=== PATIENT | female | born 1950 | race Caucasian/White ===

== ENCOUNTER 2016-09-02 05:40 | Outpatient (CLI) | payer BC ==
[~2016-09-02] VITALS: Ht 171.4 cm; Wt 77.1 kg
[2016-09-02] MEDS ORDERED: UBID60CA6 PO (11:42)
[2016-09-02] MEDS ORDERED: MULT-35 PO (11:42)
[2016-09-02] MEDS ORDERED: HYDR25TA4 PO (11:42)
[2016-09-02] MEDS ORDERED: ATOR20TA66 PO (11:42)
[2016-09-02] MEDS ORDERED: METO-272 PO (11:42)
== END 2016-09-02 11:47 ==
LOC: PREOP 05:40
PROVIDERS: ATTEND Surgery Pediatric Surgery
DX: Z01.818 Encounter for other preprocedural examination (principal); Z12.11 Encounter for screening for malignant neoplasm of colon; Z86.010 Personal history of colon polyps

== ENCOUNTER 2016-09-04 09:36 | Day surgery (SDC) | payer BC ==
[~2016-09-04] VITALS: Ht 171.4 cm; Wt 77.1 kg
[~2016-09-04 09:36] MED LIST: ATOR20TA66 PO; HYDR25TA4 PO; METO-272 PO; MULT-35 PO; UBID60CA6 PO
[2016-09-04] MEDS ORDERED: NS IV 500 ML 500 ML IV PRN (09:39)
--- OUTSIDE RECORDS SUMMARY | 2016-09-04 09:41 | XMS REPORT | Continuity of Care Document ---
Author Author [facility] Address Unknown Phone Unavailable Allergies Medications Problems Procedures Results Encounters ACCT No. Visit Date/Time Discharge Status Pt. Type Provider Facility Loc./Unit Complaint [id number] 08/08/2014 10:00:46 08/08/2014 23: 59:59 CLS Outpatient Blas Thakkar
[2016-09-04] MEDS ORDERED: NS IV 500 ML 500 ML ONE (09:42)
[2016-09-04] MEDS ORDERED: LIDOCAINE JELLY 2% (XYLOCAINE) 5 ML TUBE MM PRN (09:45)
[2016-09-04] MEDS ORDERED: FLUMAZENIL (ROMAZICON) 0.1 MG/ML 5 ML VIAL INJ PRN (09:45)
[2016-09-04] MEDS ORDERED: NALOXONE 0.4 MG/ML 1 ML (NARCAN) VIAL IVP PRN (09:45)
[2016-09-04 10:05] VITALS: BP 135/76
[2016-09-04] MEDS ORDERED: fentaNYL INJECTION 100 MCG/2 ML AMP ONE ×2 (10:19)
[2016-09-04] MEDS ORDERED: LIDOCAINE JELLY 2% (XYLOCAINE) 5 ML TUBE ONE (10:19)
[2016-09-04] MEDS ORDERED: MIDAZOLAM 2 MG/2 ML (VERSED) VIAL ONE ×4 (10:19→10:20)
--- NOTE | 2016-09-04 10:25 | Progress Note-Pre Operative ---
Pre-Operative Progress Note H&P Reviewed The H&P was reviewed, patient examined and no changes noted. Date H&P Reviewed: Sep 04, 2016 Time H&P Reviewed: 10:00 Pre-Operative Diagnosis: hx colon polyp EVETTE BARILLAS MD Sep 04, 2016 10:25 am
--- NOTE | 2016-09-04 10:25 | Conscious Sedation/ASA ---
Conscious Sedation Pre-Proced Time Reviewed: 10:00 ASA Class: 2 Airway Mallampati Classification: ([place] appropriate class) I. II. III, IV Lungs Heart ASA score ASA 1: a normal healthy patient ASA 2: a patient with a mild systemic disease (mid diabetes, controlled hypertension, obesity ASA 3: a patient with a severe systemic disease that limits activity (angina , COPD, prior Myocardial infarction) ASA 4: a patient with an incapacitating disease that is a constant threat to life (CHF, renal failure) ASA 5: a moribund patient not expected to survive 24 hrs. (ruptured aneurysm) ASA 6: a declared brain patient whose organs are being harvested. For emergent operations, add the letter E after the classification Grade 2 Sedation Plan: Analgesia, Amnesia, Plan communicated to team members, Discussed options with patient/fam, Discussed risks with patient/fam Note The patient is an appropriate candidate to undergo the planned procedure, sedation, and anesthesia. The patient immediately re-assessed prior to indication. EVETTE BARILLAS MD Sep 04, 2016 10:25 am
[2016-09-04] MEDS ORDERED: morphine INJ 10 MG/ML 1ML (SYR OR VIAL) IV PRN (10:30)
[2016-09-04] MEDS ORDERED: HYDROcodone/APAP 5 MG/325 MG (LORTAB) TAB PO PRN (10:30)
[2016-09-04] MEDS ORDERED: ONDANSETRON 4 MG/2 ML (SDV) Z0FRAN IV PRN (10:30)
[2016-09-04] MEDS ORDERED: ACETAMINOPHEN 325 MG TABLET/CAPLET (TYLENOL) PO PRN (10:30)
[2016-09-04] MEDS: fentaNYL INJECTION 100 MCG/2 ML AMP IVP PRN ×4 (10:34→10:47)
[2016-09-04] MEDS: MIDAZOLAM 2 MG/2 ML (VERSED) VIAL IVP PRN ×3 (10:38→10:45)
--- NOTE | 2016-09-04 11:09 | Progress Note-Post Operative ---
Post-Operative Progess Note Pre-Operative Diagnosis hx colon polyp Post-Operative Diagnosis chronic stage 1 ext and int hemorrhoids, proximal rectal HP(2mm), mild-moderate sigmoid diverticulosis. Post-Op Procedure Note Date of Procedure: Sep 04, 2016 Name of Procedure: Colonoscopy with bx Anesthesia Type CS Estimated blood loss (mL): minimal Specimen(s) collected rectal polyp EVETTE BARILLAS MD Sep 04, 2016 11:09 am
--- NOTE | 2016-09-04 11:10 | Discharge Inst-Surgical ---
D/C Lap Instructions-ERAN Follow Up 5 years Activity as tolerated High Fiber Diet 25g or more per day Avoid Alcohol, Caffeine, Spicy [place] and Acid foods. Drink 64 fluid oz or more of fluids per day. Symptoms to Report: Fever over 101 degree F, Nausea/Vomiting If any problems/questions: Contact your physician or go to Emergency Room EVETTE BARILLAS MD Sep 04, 2016 11:10 am
[2016-09-04 11:30] VITALS: BP 101/65
[2016-09-04 12:00] VITALS: BP 100/67
[2016-09-04 12:15] VITALS: BP 100/67
--- NOTE | 2016-09-05 12:07 | PROCEDURE REPORT ---
PROCEDURE PHYSICIAN: EVETTE DENNISON DATE OF PROCEDURE: 09/04/2016 ATTENDING PRIMARY CARE PHYSICIAN: Dr. Garza. PREOPERATIVE DIAGNOSIS: History of colon polyp. POSTOPERATIVE DIAGNOSES: 1. Mild chronic stage I external and internal hemorrhoids. 2. Small proximal rectal hyperplastic polyp, 2 mm in size. 3. Mild to moderate sigmoid diverticulosis. PROCEDURE: Colonoscopy with biopsy. SURGEON: Dr. Dennison. ANESTHESIA: Conscious sedation. ESTIMATED BLOOD LOSS: Minimal. FINDINGS: 1. Chronic stage I external and internal hemorrhoids, not actively edematous or inflamed and no bleeding. There is a small hyperplastic polyp of the proximal rectum, approximately 2 mm in size. 2. There was a mild to moderate sigmoid diverticulosis with no mucosal inflammatory changes. 3. The remainder of the colon was normal. DISPOSITION: The patient tolerated the procedure well. Ms. Sydni Schultz is a 65-year-old female in need of a follow-up screening colonoscopy. She reports that she had one done in 2008 and reports at this time she did have a polyp identified and removed at the transverse colon, which was a tubulovillous adenoma. She reports no symptoms at this time. She does not report any issues with constipation or diarrhea as well as no red blood per rectum nor any dark tarry stools. She also does not report any family history of colon cancer. PROCEDURE: The patient was brought to the endoscopy suite, laid in the left lateral decubitus position. After adequate IV pain and sedative medications and conscious sedation anesthesia, a digital rectal examination was performed. Mild stage I chronic external and internal hemorrhoids were identified, which were not actively edematous or inflamed and no bleeding. Normal sphincter tone was felt and there were no palpable masses. The endoscope was then intubated into the anus and the rectum gently insufflated. The endoscope was then advanced through the valves of Patel of the rectum. At the level of the proximal rectum, a small hyperplastic polyp approximately 2 mm in size was identified. This was biopsied and destroyed using forceps and electrocautery with visualization of good hemostasis. The endoscope was then advanced through the sigmoid colon where a mild to moderate sigmoid diverticulosis was identified. There were no mucosal inflammatory changes to indicate any active diverticulitis. The endoscope was then advanced through the remainder of the descending, transverse, and ascending colon to the cecum. These segments were normal. There were no other lesions identified. The endoscope was then slowly withdrawn while taking a second look and suctioning of residual air with no additional findings. The patient tolerated the procedure well. We will have her continue with medical management with a high fiber diet with at least 25 to 30 grams of fiber per day, as well as at least 64 fluid ounces of water daily to promote soft stools on a daily basis. Because of her history of polyps identified 2008 as well as on this colonoscopy we will recommend a follow-up colonoscopy in 5 years. Job ID: [id number] Dictated Date: 09/04/2016 11:09:42 Shredding Machine Operator Date: 09/05/2016 11:58:16 / kate
== END 2016-09-04 12:15 | disposition home or self-care (01) ==
LOC: ENDO 09:36
PROVIDERS: ATTEND Surgery Pediatric Surgery
DX: Z09 Encounter for follow-up examination after completed treatment for conditions other than malignant neoplasm (principal); K62.1 Rectal polyp; Z86.010 Personal history of colon polyps; K57.90 Diverticulosis of intestine, part unspecified, without perforation or abscess without bleeding; K64.0 First degree hemorrhoids
CPT/HCPCS: 88305

== ENCOUNTER → 2022-06-10 | Outpatient (CLI) | payer MEDICARE, OTHER ==
[~2022-06-10] MED LIST changes: -METO-272 PO; +METO50TA7 PO; -UBID60CA6 PO; +UBID60CA8 PO
[2022-06-10 09:31] LABS: BASOPHILS % (AUTO) 0 % (0-10); EOSINOPHILS # (AUTO) 0.2 10^3/uL (0.0-0.3); EOSINOPHILS % (AUTO) 2 % (0-10); HEMATOCRIT 47 % (35-52); HEMOGLOBIN 15.3 g/dL (11.5-16.0); LYMPHOCYTES # (AUTO) 2.3 10^3/uL (1.0-4.0); LYMPHOCYTES % (AUTO) 20 % (12-44); MEAN CORPUSCULAR HEMOGLOBIN 29 pg (25-34); MEAN CORPUSCULAR HGB CONC 33 g/dL (32-36); MEAN CORPUSCULAR VOLUME 88 fL (80-99); MEAN PLATELET VOLUME 8.8 fL (9.0-12.2); MONOCYTES # (AUTO) 1.1 10^3/uL (0.0-1.0); MONOCYTES % (AUTO) 9 % (0-12); NEUTROPHILS # (AUTO) 7.7 10^3/uL (1.8-7.8); NEUTROPHILS % (AUTO) 68 % (42-75); PLATELET COUNT 209 10^3/uL (130-400); WHITE BLOOD COUNT 11.4 10^3/uL (4.3-11.0)
[2022-06-10 09:54] LABS: ALANINE AMINOTRANSFERASE 36 U/L (0-55); ALBUMIN 4.1 GM/DL (3.2-4.5); ALKALINE PHOSPHATASE 71 U/L (40-136); BILIRUBIN,TOTAL 1.1 MG/DL (0.1-1.0); BUN/CREATININE RATIO 20; CALCIUM 9.8 MG/DL (8.5-10.1); CARBON DIOXIDE 30 MMOL/L (21-32); CHLORIDE 99 MMOL/L (98-107); CREATININE SERUM 0.81 MG/DL (0.60-1.30); GFR ESTIMATED 79; GLUCOSE 85 MG/DL (70-105); POTASSIUM 3.2 MMOL/L (3.6-5.0); SODIUM 140 MMOL/L (135-145); TOTAL PROTEIN 7.3 GM/DL (6.4-8.2)
== END ==
LOC: CARD 09:30
PROVIDERS: ATTEND Nurse Practitioner Family
DX: I21.9 Acute myocardial infarction, unspecified (principal)
CPT/HCPCS: 36415; 80053; 84484; 85025; 85379; 93005

== ENCOUNTER 2022-06-11 16:52 | Emergency (ER) | payer MEDICARE, OTHER ==
[~2022-06-11] VITALS: Ht 172 cm; Wt 79.0 kg
--- NOTE | 2022-06-11 17:15 | ED Chest Pain ---
General Chief Complaint: Chest Pain Stated Complaint: CHEST PAIN Nursing Triage Note: PT AMB TO RM3 PT CO OF CHEST PAIN APPROX 30 MIN. WHILE LYING IN BED PT CO OF ANXIETY. PT DENIES SOA, PT HAS CURRENTLY BEEN TAKING PREDNISONE AND AUGMENTIN AFTER BEING SICK FOR A WEEK, PT TESTED NEG FOR COVID. PT STATES HAS ANXIETY FROM TAKING PREDNISONE. PT DENIES C\\P AT THIS X. History of Present Illness Date Seen by Provider: Jun 11, 2022 Time Seen by Provider: 16:50 Initial Comments Patient is a 71-year-old female who presents to the emergency department for evaluation after having an episode of chest pain overnight that lasted approximately 30 minutes. She states that the pain was located in her left chest. She denies any alleviating or aggravating factors. She states it was self-limiting and resolved without intervention. She states she has had URI symptoms for approximately 1 to 2 weeks. She recently finished Augmentin and prednisone as prescribed by her PCP. She states that she feels like she has had persistent anxiety since taking the prednisone. She was seen at PCP yesterday where lab work and an EKG were obtained. She states that they found something on the EKG that prompted them to tell her to follow-up with a infection control manager. She states that she was also told that her potassium was low and her bilirubin was elevated. She states she usually takes potassium supplement daily but has not taken it for the last several days. She denies any fever, shortness of air, dependent edema. No history of smoking. She denies any history of cardiopulmonary disease. Allergies and Home Medications Allergies Coded Allergies: nitrofurantoin (Verified Allergy, Intermediate, RASH, 09/02/16) Patient Home Medication List Home Medication List Reviewed: Yes Atorvastatin Calcium (Atorvastatin Calcium) 20 Mg Tablet, 20 MG PO HS, (Reported) Entered as Reported by: DIAZ JACKSON on 09/02/16 1142 Hydrochlorothiazide (Hydrochlorothiazide) 25 Mg Tablet, 25 MG PO DAILY, (Reported) Entered as Reported by: DIAZ JACKSON on 09/02/16 1142 Metoprolol Succinate (Metoprolol Succinate) 50 Mg Tab.er.24h, 50 MG PO DAILY, (Reported) Entered as Reported by: DIAZ JACKSON on 09/02/16 1142 Multivitamin (Daily Multiple Vitamin) 1 Each Tablet, 1 EACH PO DAILY, (Reported) Entered as Reported by: DIAZ JACKSON on 09/02/16 1142 Ubidecarenone (Co Q10) Unknown Strength Capsule, 60 MG PO DAILY, (Reported) Entered as Reported by: DIAZ JACKSON on 09/02/16 1142 Review of Systems Review of Systems Constitutional: no symptoms reported EENTM: See HPI Respiratory: See HPI Cardiovascular: See HPI Gastrointestinal: No Symptoms Reported Genitourinary: No Symptoms Reported Musculoskeletal: no symptoms reported Skin: no symptoms reported Psychiatric/Neurological: No Symptoms Reported Endocrine: No Symptoms Reported Hematologic/Lymphatic: No Symptoms Reported Past Kpffiek-Ewvzcy-Fsbfnd Hx Patient Social History Tobacco Use?: No Substance use?: No Alcohol Use?: No Immunizations Up To Date Tetanus Booster (TDap): Unknown Influenza Vaccine Up-to-Date: Yes; Up-to-Date First/Initial COVID19 Vaccinat: 2020 Second COVID19 Vaccination [place]: 2020 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: [employer] Seasonal Allergies Seasonal Allergies: No Past Medical History Surgery/Hospitalization HX: R KNEE SCOPE, HTN, ELEVATED CHOLESTEROL, ARTHRITIS Currently Using CPAP: No Currently Using BIPAP: No High Cholesterol, Hypertension Reproductive Disorders: No Female Reproductive Disorders: Denies Sexually Transmitted Disease: No HIV/AIDS: No UTI-Chronic Loss of Vision: Bilateral Hearing Impairment: Denies Adverse Reaction/Blood Tranf: No (N/A) Physical Exam Vital Signs Vital Signs - First Documented 06/11/22 16:55 Temp 36.9 Pulse 82 Resp 16 B/P (MAP) 151/88 (109) Pulse Ox 97 Capillary Refill : Less Than 3 Seconds Height, Weight, BMI Height: 5'7.50" Weight: 170lbs. 0.0oz. 77.514412ri; 26.00 BMI Method: General Appearance: No Apparent Distress, WD/WN HEENT: PERRL/EOMI, TMs Normal, Normal ENT Inspection, Pharynx Normal Neck: Full Range of Motion, Normal Inspection, Non Tender, Supple Respiratory: Chest Non Tender, Lungs Clear, Normal Breath Sounds, No Accessory Muscle Use Cardiovascular: Regular Rate, Rhythm Gastrointestinal: Non Tender, Soft Extremity: Normal Capillary Refill, Normal Inspection, Normal Range of Motion, Non Tender, No Calf Tenderness Neurologic/Psychiatric: Alert, Oriented x3, No Motor/Sensory Deficits, Normal Mood/Affect Skin: Normal Color, Warm/Dry Progress/Results/Core Measures Results/Orders Lab Results Laboratory Tests Test 06/11/22 17:05 Range/Units White Blood Count 9.4 4.3-11.0 10^3/uL Red Blood Count 5.15 H 3.80-5.11 10^6/uL Hemoglobin 14.9 11.5-16.0 g/dL Hematocrit 45 35-52 % Mean Corpuscular Volume 87 80-99 fL Mean Corpuscular Hemoglobin 29 25-34 pg Mean Corpuscular Hemoglobin Concent 33 32-36 g/dL Red Cell Distribution Width 13.5 10.0-14.5 % Platelet Count 197 130-400 10^3/uL Mean Platelet Volume 9.4 9.0-12.2 fL Immature Granulocyte % (Auto) 0 % Neutrophils (%) (Auto) 66 42-75 % Lymphocytes (%) (Auto) 25 12-44 % Monocytes (%) (Auto) 8 0-12 % Eosinophils (%) (Auto) 2 0-10 % Basophils (%) (Auto) 0 0-10 % Neutrophils # (Auto) 6.2 1.8-7.8 10^3/uL Lymphocytes # (Auto) 2.3 1.0-4.0 10^3/uL Monocytes # (Auto) 0.7 0.0-1.0 10^3/uL Eosinophils # (Auto) 0.2 0.0-0.3 10^3/uL Basophils # (Auto) 0.0 0.0-0.1 10^3/uL Immature Granulocyte # (Auto) 0.0 0.0-0.1 10^3/uL Prothrombin Time 13.0 12.2-14.7 SEC INR Comment 0.9 0.8-1.4 Activated Partial Thromboplast Time 28 24-35 SEC Sodium Level 135 135-145 MMOL/L Potassium Level 2.9 L 3.6-5.0 MMOL/L Chloride Level 97 L 98-107 MMOL/L Carbon Dioxide Level 26 21-32 MMOL/L Anion Gap 12 5-14 MMOL/L Blood Urea Nitrogen 17 7-18 MG/DL Creatinine 0.84 0.60-1.30 MG/DL Estimat Glomerular Filtration Rate 75 BUN/Creatinine Ratio 20 Glucose Level 106 H 70-105 MG/DL Calcium Level 9.5 8.5-10.1 MG/DL Corrected Calcium 9.4 8.5-10.1 MG/DL Magnesium Level 1.9 1.6-2.4 MG/DL Total Bilirubin 1.2 H 0.1-1.0 MG/DL Aspartate Amino Transf (AST/SGOT) 19 5-34 U/L Alanine Aminotransferase (ALT/SGPT) 33 0-55 U/L Alkaline Phosphatase 79 40-136 U/L Troponin I < 0.028 <0.028 NG/ML Total Protein 7.3 6.4-8.2 GM/DL Albumin 4.1 3.2-4.5 GM/DL My Orders Orders - POLO CANO OFFAL ICER POULTRY Cbc With Automated Diff (06/11/22 17:11) Magnesium (06/11/22 17:11) Chest 1 View, Ap/Pa Only (06/11/22 17:11) Comprehensive Metabolic Panel (06/11/22 17:11) Protime With Inr (06/11/22 17:11) Partial Thromboplastin Time (06/11/22 17:11) O2 (06/11/22 17:11) Monitor-Rhythm Ecg Trace Only (06/11/22 17:11) Ed Iv/Invasive Line Start (06/11/22 17:11) Troponin I [place] (06/11/22 17:11) Potassium Chloride (Tablet) (K Dur Table (06/11/22 18:15) Vital Signs/I&O 06/11/22 16:55 Temp 36.9 Pulse 82 Resp 16 B/P (MAP) 151/88 (109) Pulse Ox 97 Blood Pressure Mean: 109 Progress Progress Note : Progress Note Patient is nontoxic and well-hydrated on exam. No adventitious lung sounds or increased work of breathing noted. No provocation of chest pain with palpation or movement. Vital signs are reassuring. EKG without acute ischemic change or marked arrhythmia. Laboratory evaluation overall reassuring. Troponin is negative. No need to repeat since her chest pain started overnight. She has not complained of any chest pain while in the emergency department. Laboratory evaluation was notable for relatively mild hypokalemia as well as some very mild hyperbilirubinemia. Patient was repleted with 40 mEq of potassium orally. She was instructed to continue to use her potassium supplement nightly. Chest x-ray acutely negative. Follow-up with PCP and cardiology. Return precautions for urgent symptomology discussed. Patient verbalized understanding. Departure Impression Primary Impression: Chest pain Qualified Codes: R07.9 - Chest pain, unspecified Disposition: HOME, SELF-CARE Condition: Stable Departure-Patient Inst. Decision time for Depature: 18:10 Referrals: RACHAEL TURK MD (PCP/Family) Primary Care Physician Patient Instructions: Chest Pain, Adult ED POLO CANO OFFAL ICER POULTRY Jun 11, 2022 17:15
[2022-06-11 17:18] LABS: BASOPHILS % (AUTO) 0 % (0-10); EOSINOPHILS # (AUTO) 0.2 10^3/uL (0.0-0.3); EOSINOPHILS % (AUTO) 2 % (0-10); HEMATOCRIT 45 % (35-52); HEMOGLOBIN 14.9 g/dL (11.5-16.0); LYMPHOCYTES # (AUTO) 2.3 10^3/uL (1.0-4.0); LYMPHOCYTES % (AUTO) 25 % (12-44); MEAN CORPUSCULAR HEMOGLOBIN 29 pg (25-34); MEAN CORPUSCULAR HGB CONC 33 g/dL (32-36); MEAN CORPUSCULAR VOLUME 87 fL (80-99); MEAN PLATELET VOLUME 9.4 fL (9.0-12.2); MONOCYTES # (AUTO) 0.7 10^3/uL (0.0-1.0); MONOCYTES % (AUTO) 8 % (0-12); NEUTROPHILS # (AUTO) 6.2 10^3/uL (1.8-7.8); NEUTROPHILS % (AUTO) 66 % (42-75); PLATELET COUNT 197 10^3/uL (130-400); WHITE BLOOD COUNT 9.4 10^3/uL (4.3-11.0)
[2022-06-11 17:28] LABS: ALBUMIN 4.1 GM/DL (3.2-4.5)
[2022-06-11 17:29] LABS: POTASSIUM 2.9 MMOL/L (3.6-5.0)
[2022-06-11 17:30] LABS: CALCIUM 9.5 MG/DL (8.5-10.1)
[2022-06-11 17:31] LABS: INR 0.9 (0.8-1.4); TOTAL PROTEIN 7.3 GM/DL (6.4-8.2)
[2022-06-11 17:33] LABS: BILIRUBIN,TOTAL 1.2 MG/DL (0.1-1.0)
[2022-06-11 17:35] LABS: CREATININE SERUM 0.84 MG/DL (0.60-1.30)
[2022-06-11 17:37] LABS: MAGNESIUM 1.9 MG/DL (1.6-2.4)
--- NOTE | 2022-06-11 17:57 | Diagnostic Imaging Report ---
INDICATION: Chest pain. TIME OF EXAM: 5:30 p.m. FINDINGS: The heart size is normal. The pulmonary vascularity is unremarkable. The lungs are clear. No infiltrate, effusion or pneumothorax is detected. IMPRESSION: No acute cardiopulmonary process is detected. Dictated by: Dictated on workstation # [id number]
[2022-06-11] MEDS ORDERED: KCL 20 MEQ TAB (K-DUR) PO ONE (18:15)
[2022-06-11 18:30] VITALS: BP 129/68
== END 2022-06-11 18:31 | disposition home or self-care (01) ==
LOC: EDUNIT# 16:52 → ER 16:54
DX: R07.89 Other chest pain (principal); E87.6 Hypokalemia; E80.7 Disorder of bilirubin metabolism, unspecified
CPT/HCPCS: 36415; 71045; 80053; 83735; 84484; 85025; 85610; 85730; 93005; 93041

== ENCOUNTER → 2022-06-25 | Outpatient (CLI) | payer MEDICARE, OTHER ==
--- NOTE | 2022-06-25 09:07 | Diagnostic Imaging Report ---
PROCEDURE: US Gallbladder. INDICATION: 71-year-old female, abdominal pain TECHNIQUE: Multiple grayscale sonographic images were obtained of the right upper quadrant of the abdomen. CORRELATION STUDY: None FINDINGS: LIVER: Liver length 14.6 cm. No focal lesion. The main portal vein is patent and with normal direction of flow. GALLBLADDER: The gallbladder demonstrates no definitive shadowing gallstones, abnormal gallbladder wall thickening or pericholecystic fluid. COMMON BILE DUCT: Nondilated at 0.5 cm. AORTA/IVC: Not well visualized. PANCREAS: Visualized portions appearing unremarkable. RIGHT KIDNEY: 10.6 x 4.9 x 4.7 cm. No hydronephrosis. OTHER: None. IMPRESSION: 1. Negative appearing right upper quadrant abdominal ultrasound. Dictated by: Dictated on workstation # [id number]
== END ==
LOC: RAD 07:28
PROVIDERS: ATTEND Nurse Practitioner Family
DX: R10.9 Unspecified abdominal pain (principal)
CPT/HCPCS: 76705

== ENCOUNTER → 2022-06-27 | Outpatient (CLI) | payer MEDICARE, OTHER ==
[~2022-06-27] MED LIST changes: +IOHEXOL 350 MG/ML 100 ML (OMNIPAQUE 350) VIAL IV ONE; +NS 100 ML (IVPB) BAG IV ONE
[2022-06-27] MEDS: CATHETER FLUSH 10 ML SYR IV PRN ×2 (10:58→16:50)
--- NOTE | 2022-06-27 17:24 | Diagnostic Imaging Report ---
PROCEDURE: CT abdomen and pelvis with contrast. TECHNIQUE: Multiple contiguous axial images were obtained through the abdomen and pelvis after administration of intravenous contrast. Auto Exposure Controls were utilized during the CT exam to meet ALARA standards for radiation dose reduction. All CT scans use one or more of the following dose optimizing techniques: automated exposure control, MA and/or KvP adjustment based on patient size and exam type or iterative reconstruction. INDICATION: Abdominal pain There is distention of the gallbladder without associated gallbladder wall thickening or pericholecystic fluid identified. Otherwise, there is no evidence of biliary ductal dilatation. No focal hepatic, pancreatic, adrenal gland or splenic lesion is identified. Dominant cyst in the upper pole of the left kidney measures 2 cm in diameter. Otherwise, kidneys appear lobulated without discrete mass identified. Hyperdensity seen in the lower poles of both kidneys which may be due to early concentrated urine versus calcification. There is no evidence of free fluid within the abdomen or pelvis. There is low density throughout the endometrial canal. Unopacified bladder is unremarkable. Note is made of L4-L5 and L5-S1 degenerative disc disease with associated degenerative facet arthropathy and grade 1 anterolisthesis of L5 on S1. IMPRESSION: There appears to be fluid distention in the endometrial canal. This is abnormal in a postmenopausal patient and clinical correlation is recommended. Ultrasound may be of value for assessment. Otherwise, no definite acute abnormality is identified within the abdomen or pelvis. Dictated by: Dictated on workstation # [id number]
== END ==
LOC: RAD 16:30
PROVIDERS: ATTEND Urology
DX: R10.9 Unspecified abdominal pain (principal)
CPT/HCPCS: 74177

== ENCOUNTER → 2022-07-10 | Outpatient (CLI) | payer MEDICARE, OTHER ==
[~2022-07-10] MED LIST changes: -IOHEXOL 350 MG/ML 100 ML (OMNIPAQUE 350) VIAL IV ONE; -NS 100 ML (IVPB) BAG IV ONE
[2022-07-10 14:17] VITALS: BP 152/89
== END ==
LOC: CARD 13:00
PROVIDERS: ATTEND Internal Medicine Cardiovascular Disease
DX: I11.9 Hypertensive heart disease without heart failure (principal)
CPT/HCPCS: C8929; C8930; 93306

== ENCOUNTER 2022-11-20 05:41 | Outpatient (CLI) | payer MEDICARE, OTHER ==
[~2022-11-20] VITALS: Ht 170.2 cm; Wt 83.4 kg
[2022-11-20] MEDS ORDERED: POTA-51 PO (10:18)
[2022-11-20] MEDS ORDERED: SUCR1TAB PO (10:18)
[2022-11-20] MEDS ORDERED: ESCI-2 PO (10:18)
[2022-11-20] MEDS ORDERED: GLUC100016 PO (10:18)
[2022-11-20] MEDS ORDERED: PANT40TA52 PO (10:18)
[2022-11-20] MEDS ORDERED: CHOL500050 PO (10:18)
== END 2022-11-20 10:20 | disposition home or self-care (01) ==
LOC: PREOP 05:41
PROVIDERS: ATTEND Surgery
DX: Z01.818 Encounter for other preprocedural examination (principal)

== ENCOUNTER 2022-11-27 11:00 | Day surgery (SDC) | payer MEDICARE, OTHER ==
[~2022-11-27] VITALS: Ht 170 cm; Wt 83.4 kg
[~2022-11-27 11:00] MED LIST changes: +CHOL500050 PO; +ESCI-2 PO; +GLUC100016 PO; +PANT40TA52 PO; +POTA-51 PO; +SUCR1TAB PO
[2022-11-27] MEDS ORDERED: LACTATED RINGERS 1,000 ML IV STA (11:05)
[2022-11-27] MEDS ORDERED: HURRICAINE EXT TUBE (BENZOCAINE) XX PRN (11:15)
[2022-11-27] MEDS ORDERED: LIDOCAINE JELLY 2% 6 ML SYRINGE MM PRN (11:15)
--- NOTE | 2022-11-27 11:16 | Progress Note-Pre Operative ---
Pre-Operative Progress Note Date of Available H&P: November 27, 2022 Date H&P Reviewed: November 27, 2022 Time H&P Reviewed: 11:00 History & Physical: No changes noted Pre-Operative Diagnosis: GERD, hx polyp, screening EVETTE BARILLAS MD November 27, 2022 11:16
--- NOTE | 2022-11-27 11:18 | Discharge Inst-Surgical ---
D/C Lap Instructions-ERAN Follow Up Activity as tolerated High Fiber Diet 25g or more per day Avoid Alcohol, Caffeine, Spicy [place] and Acid foods. Drink 64 fluid oz or more of fluids per day. Symptoms to Report: Fever over 101 degree F, Nausea/Vomiting If any problems/questions: Contact your physician or go to Emergency Room EVETTE BARILLAS MD November 27, 2022 11:17
[2022-11-27 11:25] VITALS: BP 128/73
[2022-11-27] MEDS ORDERED: ONDANSETRON 4 MG/2 ML (SDV) Z0FRAN IVP PRN (11:30)
[2022-11-27] MEDS ORDERED: ONDANSETRON 4 MG (ZOFRAN) ORAL DISSOLVE TAB PO PRN (11:30)
[2022-11-27] MEDS ORDERED: PROPOFOL INJECTION 50 ML IV ONE (11:57)
[2022-11-27] MEDS ORDERED: MIDAZOLAM 2 MG/2 ML (VERSED) VIAL ONE (11:57)
[2022-11-27] MEDS ORDERED: LIDOCAINE JELLY 2% 6 ML SYRINGE ONE (12:16)
[2022-11-27 13:08] VITALS: BP 95/53
--- NOTE | 2022-11-27 13:10 | Anesthesia-General Post-Op ---
MAC Patient Condition Mental Status/LOC: Same as Preop Cardiovascular: Satisfactory Nausea/Vomiting: Absent Respiratory: Satisfactory Pain: Controlled Complications: Absent Post Op Complications Complications None Follow Up Care/Instructions Patient Instructions None needed. Anesthesiology Discharge Order Discharge Order Patient is doing well, no complaints, stable vital signs, no apparent adverse anesthesia problems. No complications reported per nursing. RAFFI CARRANZA CRNA November 27, 2022 13:10
[2022-11-27 13:13] VITALS: BP 95/52
[2022-11-27 13:18] VITALS: BP 107/57
[2022-11-27 13:20] VITALS: BP 107/57
--- NOTE | 2022-11-27 13:33 | Progress Note-Post Operative ---
Post-Operative Progess Note Surgeon (s)/Cold Strip Feeder (s) Surgeon EVETTE BARILLAS MD Cold Strip Feeder: none Pre-Operative Diagnosis GERD, hx polyp, screening Post-Operative Diagnosis reflux esophagitis(grade B), small HH(2.5cm), moderate gastritis, chronic stage 2 ext and int hemorrhoids, mild sigmoid diverticulosis, HP asc colon Procedure & Operative Findings Date of Procedure 11/27/22 Procedure Performed/Findings EGD with bx. colonoscopy with bx. Anesthesia Type mac Estimated Blood Loss Estimated blood loss (mL): minimal Specimens/Packing Specimens Removed ge jxn, antrum, asc colon polyp EVETTE BARILLAS MD November 27, 2022 13:33
[2022-11-27 13:45] VITALS: BP 107/57
--- NOTE | 2022-11-27 21:58 | OPERATIVE REPORT ---
DATE OF SERVICE: 11/27/2022 ATTENDING PRIMARY CARE PHYSICIAN: Kranthi Garza MD PREOPERATIVE DIAGNOSES: Gastroesophageal reflux disease, peptic ulcer disease, history of colon polyp. POSTOPERATIVE DIAGNOSES: Reflux esophagitis, [place] grade B; small hiatal hernia approximately 2.5 cm in size, moderate gastritis, mild chronic stage II external and internal hemorrhoids, small hyperplastic polyp of the ascending colon, mild sigmoid diverticulosis. PROCEDURE: EGD with biopsy, colonoscopy with hot biopsy polypectomy. SURGEON: Evette Barillas MD ANESTHESIA: Monitored anesthesia care. ESTIMATED BLOOD LOSS: Minimal. FINDINGS: Reflux esophagitis, [place] grade B; small hiatal hernia approximately 2.5 cm in size, moderate gastritis, mild chronic stage II external and internal hemorrhoids, small hyperplastic polyp of the ascending colon, mild sigmoid diverticulosis. DISPOSITION: The patient tolerated the procedure well. 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 She then underwent a colonoscopy in 2016 and there was a small rectal hyperplastic polyp and mild sigmoid diverticulosis. She was referred over to us for a four-month history of epigastric pressure sensation as well as pain with radiation towards the back. She does not report any giovanni episodes of nausea nor vomiting as well as no change in bowel habits. She is being treated for peptic ulcer disease and is currently on Carafate and pantoprazole. 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 DESCRIPTION OF PROCEDURE: The patient was brought to the endoscopy suite in the left lateral decubitus position. After adequate IV pain, sedative medications and monitored anesthesia care, the mouthpiece was applied. The endoscope was placed in the mouth, visualizing the pharynx and hypopharyngeal region. Vocal cords, epiglottis and vallecula identified and appeared to be normal. Endoscope was then gently intubated into the esophageal opening and esophagus insufflated. The endoscope was then advanced into the first, second and third portions of esophagus; at the level of the GE junction, a reflux esophagitis, [place] grade B identified. No ulcers or strictures identified in this region. A biopsy was taken with forceps with visualization of good hemostasis. The endoscope was then advanced into the stomach and endoscope retroflexed visualizing a small to moderate size hiatal hernia approximately 2.5 cm in size. There was a moderate severity gastritis. No formal ulcerations, polyps or any neoplasms. A biopsy was taken of the antrum to rule out H. pylori with visualization of good hemostasis. The endoscope was then advanced through the pylorus and the first and second portion of the duodenum, which appeared normal with no distal obstructions. The endoscope was then slowly withdrawn while taking a second look and suctioning of residual air with no additional findings. A digital rectal examination was performed which revealed mild chronic stage II, external and internal hemorrhoids, not actively demonstrated inflamed and no bleeding. Normal sphincter tone was felt and there were no palpable masses. The endoscope was then intubated into the anus, rectum gently insufflated. The endoscope was then advanced through the valves of Patel of the rectum with no polyps or any neoplasms identified. Through the sigmoid colon, mild sigmoid diverticulosis identified. The endoscope was then advanced through the descending and transverse colon to the ascending colon where a small hyperplastic polyp approximately 2 mm in size was identified and this was biopsied and destroyed with forceps and electrocautery with visualization of good hemostasis. The endoscope was then advanced to the cecum, which was normal. Endoscope was then slowly withdrawn while taking a second look and suctioning of residual air with no additional findings. The patient tolerated the procedure well. We will recommend the necessary lifestyle and dietary accommodation including small and more frequent meals, avoidance of eating at night as well as head elevation while lying supine. We will also have her continue her Protonix and Carafate on a p.r.n. basis. Her symptoms may be related to the hiatal hernia; however, she does state issues with pain that radiates towards the back and some crampy abdominal symptoms that may also be related to her gallbladder. She did have an ultrasound, which did not show any gallstones; however, she may be developing a biliary dyskinesia and if not already done we will proceed with a HIDA scan as an outpatient. We will also recommend a high-fiber diet with a fiber supplementation, which should equal or exceed 25 grams daily as well as significant amounts of water to promote soft consistency stools on a daily basis. From a standpoint of colonoscopies that she is asymptomatic, she does not need another colonoscopy for another 10 years. Job ID: [id number] DocumentID: [id number] Dictated Date: 11/27/2022 13:13:35 Test Developer Date: 11/27/2022 21:56:00 Dictated By: EVETTE BARILLAS MD
== END 2022-11-27 14:00 | disposition home or self-care (01) ==
LOC: ENDO 11:00
PROVIDERS: ATTEND Surgery
DX: K21.00 Gastro-esophageal reflux disease with esophagitis, without bleeding (principal); K29.50 Unspecified chronic gastritis without bleeding; D12.2 Benign neoplasm of ascending colon; K44.9 Diaphragmatic hernia without obstruction or gangrene; K64.4 Residual hemorrhoidal skin tags; K64.1 Second degree hemorrhoids; K57.30 Diverticulosis of large intestine without perforation or abscess without bleeding; Z79.899 Other long term (current) drug therapy
CPT/HCPCS: 88305

== ENCOUNTER → 2022-12-16 | Outpatient (CLI) | payer MEDICARE, OTHER ==
[~2022-12-16] MED LIST changes: +CATHETER FLUSH 10 ML SYR IVP PRN
--- NOTE | 2022-12-16 12:46 | Diagnostic Imaging Report ---
INDICATION: Right upper quadrant pain. Patient was administered 5.5 mCi technetium 99m Choletec intravenously and imaging over the abdomen was performed. At 1 hour patient ingested 8 ounces of Ensure and the gallbladder ejection fraction was calculated. There is homogeneous uptake of activity by the liver with prompt excretion of activity into the gallbladder and common duct. There is normal passage of activity into the small bowel. Mild gastric bile reflux is also noted. Gallbladder ejection fraction is normal at 43%. IMPRESSION: 1. Patent cystic duct and common bile duct. 2. Normal gallbladder ejection fraction of 43%. 3. Mild gastric bile reflux. Dictated by: Dictated on workstation # [id number]
== END ==
LOC: CARD 09:36
PROVIDERS: ATTEND Surgery
DX: K21.9 Gastro-esophageal reflux disease without esophagitis (principal); R10.11 Right upper quadrant pain
CPT/HCPCS: 78227; A9537

== ENCOUNTER → 2023-06-11 | Outpatient (CLI) | payer MEDICARE, OTHER ==
[~2023-06-11] MED LIST changes: +CETI10TA24 PO; +ESTR42.511 VG; +GLUC15006 PO; +POTA-330 PO; -POTA-51 PO; +ROSU10TA28 PO
--- NOTE | 2023-06-11 13:21 | Diagnostic Imaging Report ---
INDICATION: Right upper quadrant pain. EXAMINATION: HIDA scan, 06/11/2023. COMPARISON: 12/16/2022. FINDINGS: After uneventful administration of 5.15 mCi of technetium-99m Choletec intravenously, subsequent imaging was performed. There is prompt homogeneous uptake throughout the liver. Gallbladder is seen within 60 minutes. Ensure was administered orally with continued imaging performed and small bowel visualized. Ejection fraction calculated at 33.5%. IMPRESSION: 1. No evidence for an obstructive process. 2. Ejection fraction just below the lower limits of normal suggesting gallbladder dyskinesia or chronic cholecystitis. Ejection fraction has decreased since previous. Dictated by: Dictated on workstation # [id number]
== END ==
LOC: CARD 10:50
PROVIDERS: ATTEND Surgery
DX: R10.11 Right upper quadrant pain (principal)
CPT/HCPCS: 78227; A9537

== ENCOUNTER 2023-06-17 05:31 | Outpatient (CLI) | payer MEDICARE, OTHER ==
[~2023-06-17] VITALS: Ht 170.2 cm; Wt 79.5 kg
[~2023-06-17 05:31] MED LIST changes: -CATHETER FLUSH 10 ML SYR IVP PRN; -CETI10TA24 PO; -ESTR42.511 VG; -GLUC15006 PO; -ROSU10TA28 PO
[2023-06-17] MEDS ORDERED: GLUC15006 PO (13:42)
[2023-06-17] MEDS ORDERED: ESTR42.511 VG (13:42)
[2023-06-17] MEDS ORDERED: ROSU10TA28 PO (13:42)
[2023-06-17] MEDS ORDERED: CETI10TA24 PO (13:53)
== END 2023-06-17 14:12 | disposition home or self-care (01) ==
LOC: PREOP 05:31
PROVIDERS: ATTEND Surgery
DX: Z01.818 Encounter for other preprocedural examination (principal)

== ENCOUNTER 2023-06-26 11:37 | Day surgery (SDC) | payer MEDICARE, OTHER ==
--- NOTE | 2023-06-18 12:17 | HISTORY AND PHYSICAL ---
This is for date of service 06/26/2023. ATTENDING PRIMARY CARE PHYSICIAN: Dr. Kranthi Garza. The patient is a 72-year-old female who is known to us. 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 She then underwent a colonoscopy in 2016 where there was a small rectal hyperplastic polyp and a mild sigmoid diverticulosis. She was then seen for a 4 month history of epigastric pressure sensation as well as pain and radiation towards her back. She did not report any giovanni episodes of nausea or vomiting as well as no change in bowel habits. She was being treated for peptic ulcer disease and was on Carafate as well as Protonix. 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 On 11/27/2022, she underwent an EGD with biopsy and colonoscopy with hot biopsy polypectomy. Findings were reflux esophagitis [place] grade B, small hiatal hernia, 2.5 cm in size and moderate gastritis and mild chronic stage II external and internal hemorrhoids as well as a small hyperplastic polyp of the ascending colon and a mild sigmoid diverticulosis. She tolerated the procedure well and was later discharged home. Biopsies were negative for H. pylori as well as negative for Mccabe's esophagus and the ascending colon polyp was consistent with a tubular adenoma. She continued to have symptoms and did undergo a gallbladder ultrasound, which did not show any gallstones. She then underwent a HIDA scan where she was found to have an ejection fraction of 43% and reports that during the administration of the Kinevac analog as well as after the procedure, she did not report any major issues with any abdominal bloating, distention as well as no nausea or diarrhea. She then presented approximately a month ago and reported that since she had her endoscopies that some of her symptoms had worsened, which encompassed abdominal bloating as well as epigastric pain with radiation towards the lower back as well as nausea and diarrhea, however, no vomiting. She reports she is currently on a Protonix 40 mg daily, and reports she was initially on twice daily dosing, however, symptoms did improve when she went back to once a day dosing. It was decided at that time to repeat HIDA scan. Upon repeat of the HIDA scan, she was found to have a lower ejection fraction of 33%, consistent with a biliary dyskinesia. It was then decided that due to the declining ejection fraction to proceed with a laparoscopic cholecystectomy. MEDICAL HISTORY: Gastroesophageal reflux disease, hypertension, hyperlipidemia. SURGICAL HISTORY: Right knee arthroscopy 2012. ALLERGIES: MACROBID. MEDICATIONS: CoQ10 200 mg as directed, rosuvastatin 5 mg daily, glucosamine 500 mg 3 capsules daily, Carafate 1 gram q.i.d. p.r.n., metoprolol ER 50 mg daily, hydrochlorothiazide 25 mg daily, Protonix 40 mg daily, potassium chloride ER 20 mEq daily. SOCIAL HISTORY: Negative for tobacco smoke, social for alcohol. FAMILY HISTORY: Father, type 2 diabetes mellitus, hypertension, myocardial infarction. Mother, hypertension. VITAL SIGNS: Blood pressure is 162/86. Current weight 183.0 pounds at 5 feet 7 inches. REVIEW OF SYSTEMS: Well-nourished female in no acute distress. She is not experiencing any shortness of breath or difficulty breathing. No chest pain, palpitations or diaphoresis. She does report episodes of nausea as well as intermittent episodes of abdominal distention and crampy pain in the epigastric to right upper abdominal quadrant. She denies any vomiting. No diarrhea or constipation. No red blood per rectum. No dark tarry stools. No fever or chills. No recent inadvertent weight loss. All other review of systems negative. PHYSICAL EXAM: CHEST: Clear. Good breath sounds bilaterally. HEART: Regular, no murmurs. EXTREMITIES: No lower extremity edema. Negative Homans sign. HEENT: No scleral icterus. No cervical lymphadenopathy. ABDOMEN: Soft, nondistended. There is some mild tenderness in the epigastric to right upper abdominal quadrant with deep palpation. No peritoneal signs. No palpable masses. SKIN: Warm, dry and pink. NEUROLOGIC: Awake, alert and oriented x3. ASSESSMENT AND PLAN: A 72-year-old female with epigastric pain, nausea, abdominal bloating, who underwent a repeat HIDA scan and was found to have a lower ejection fraction of 33%, consistent with biliary dyskinesia. At this time, recommendation is to proceed with a laparoscopic cholecystectomy. The risks and benefits of the procedure as well as the procedure and home care instructions were explained to the patient. She verbalized understanding of instructions and agrees to proceed as planned. At this time, we will schedule her for a laparoscopic cholecystectomy. Job ID: [id number] DocumentID: [id number] Dictated Date: 06/18/2023 09:23:31 Presser And Shaper Knitted [employer]s Date: 06/18/2023 12:15:00 Dictated By: NAYAN LIN APRN
[2023-06-26] VITALS (10 sets, daily range): BP systolic 128–155; BP diastolic 66–87
[~2023-06-26 11:37] MED LIST changes: +CETI10TA24 PO; +ESTR42.511 VG; +GLUC15006 PO; +ROSU10TA28 PO
[2023-06-26] MEDS ORDERED: ceFAZolin INJECTION 2,000 MG in NS (IVPB) 50 ML 50 ML IV ONE (12:00)
--- NOTE | 2023-06-26 12:17 | Progress Note-Pre Operative ---
Pre-Operative Progress Note Date H&P Reviewed: Jun 26, 2023 Time H&P Reviewed: 12:15 History & Physical: H&P Reviewed, Patient Examed Pre-Operative Diagnosis: Biliary Dyskinesa NAYAN LIN SYRUP BLENDER Jun 26, 2023 12:17
[2023-06-26] MEDS ORDERED: HYDR-3817 PO (12:19)
--- NOTE | 2023-06-26 12:19 | Discharge Inst-Surgical ---
D/C Lap Instructions-KIDO Reconcile Patient Problems Problems Reviewed?: Yes New, Converted, or Re-Newed RX: RX on Chart Follow Up Appt in 2 weeks Activity as tolerated No driving for 24 hours No driving while on pain medications Incentive Spirometry use every 2 hours while awake Regular Diet Symptoms to Report: Fever over 101 degree F, Nausea/Vomiting Infection Signs and Symptoms to report: Increased redness, Foul odor of wound, Increased drainage Bathing instructions: May shower Operative Area Clean/Dry; Keep incision clean/dry If any problems/questions: Contact your physician or go to Emergency Room NAYAN LIN APRN Jun 26, 2023 12:19
[2023-06-26] MEDS ORDERED: ceFAZolin INJECTION 2,000 MG ONE (12:22)
[2023-06-26] MEDS ORDERED: NS (IVPB) 50 ML 50 ML ONE (12:22)
[2023-06-26] MEDS ORDERED: LIDOCAINE 2% w/EPI 1:100,000 20 ML VIAL ONE (12:23)
[2023-06-26] MEDS: LACTATED RINGERS 1,000 ML 1,000 ML IV PRN ×2 (12:25→13:46)
[2023-06-26] MEDS ORDERED: morphine INJ 10 MG/ML 1ML (SYR OR VIAL) IVP PRN (12:30)
[2023-06-26] MEDS ORDERED: ONDANSETRON INJECTION 4 MG/2 ML (SDV) IVP PRN ×2 (12:30→15:15)
[2023-06-26] MEDS ORDERED: ACETAMINOPHEN 325 MG TABLET PO PRN (12:30)
[2023-06-26] MEDS ORDERED: HYDROcodone/ACETAMINOPHEN 5 MG/325 MG TABLET PO ONE (12:30)
[2023-06-26] MEDS ORDERED: fentaNYL INJECTION 100 MCG/2 ML VIAL ONE (12:56)
[2023-06-26] MEDS ORDERED: GLYCOPYRROLATE INJ 0.2 MG/ML 2 ML VIAL ONE (12:56)
[2023-06-26] MEDS ORDERED: NEOSTIGMINE 1 MG/1ML 10 ML VIAL ONE (12:56)
[2023-06-26] MEDS ORDERED: proPOfol INJECTION 200 MG/20 ML VIAL IV ONE (12:56)
[2023-06-26] MEDS ORDERED: dexAMETHasone INJ 10 MG/ML 1 ML VIAL ONE (12:56)
[2023-06-26] MEDS ORDERED: ONDANSETRON INJECTION 4 MG/2 ML (SDV) ONE (12:56)
[2023-06-26] MEDS ORDERED: ROCURONIUM 50 MG/5 ML VIAL IV ONE (12:56)
[2023-06-26] MEDS ORDERED: LIDOCAINE PF 2% 5 ML VIAL ONE (12:56)
--- NOTE | 2023-06-26 14:37 | Progress Note-Post Operative ---
Post-Operative Progess Note Surgeon (s)/Sander And Buffer (s) Surgeon EVETTE BARILLAS MD Sander And Buffer: reza gorman WOUND CARE TECHNICIAN Pre-Operative Diagnosis Biliary Dyskinesa Post-Operative Diagnosis same Procedure & Operative Findings Date of Procedure 06/26/23 Procedure Performed/Findings laparoscopic cholecystectomy Anesthesia Type get Estimated Blood Loss Estimated blood loss (mL): minimal Specimens/Packing Specimens Removed gallbladder EVETTE BARILLAS MD Jun 26, 2023 14:37
[2023-06-26] MEDS ORDERED: SUGAMMADEX INJ 100 MG/ML 5 ML VIAL IV ONE (14:40)
[2023-06-26] MEDS ORDERED: SEVOFLURANE (ULTANE) 15 ML INHAL SOLN ONE (14:53)
[2023-06-26] MEDS ORDERED: HYDROmorphone INJECTION 2 MG/ML VIAL IV ONE (15:15)
[2023-06-26] MEDS ORDERED: morphine INJ 10 MG/ML 1ML (SYR OR VIAL) IVP ONE (15:15)
--- NOTE | 2023-06-26 15:26 | Anesthesia-General Post-Op ---
General Patient Condition Mental Status/LOC: Same as Preop Cardiovascular: Satisfactory Nausea/Vomiting: Absent Respiratory: Satisfactory Pain: Controlled Complications: Absent Post Op Complications Complications None Follow Up Care/Instructions Patient Instructions None needed. Anesthesia/Patient Condition Patient Condition Patient is awake in PACU and doing well, no complaints, stable vital signs, no apparent adverse anesthesia problems. No complications reported per nursing. HOANG CATHERINE DO Jun 26, 2023 15:26
[2023-06-26] MEDS ORDERED: HYDROcodone/ACETAMINOPHEN 5 MG/325 MG TABLET ONE (15:55)
--- NOTE | 2023-06-26 21:36 | OPERATIVE REPORT ---
DATE OF SERVICE: 06/26/2023 ATTENDING PRIMARY CARE PHYSICIAN: Kranthi Garza MD PREOPERATIVE DIAGNOSIS: Symptomatic biliary dyskinesia. POSTOPERATIVE DIAGNOSIS: Symptomatic biliary dyskinesia with biliary sludge. PROCEDURE: Laparoscopic cholecystectomy. SURGEON: Evette Barillas MD BID MANAGER: Jose Elias Matthews APRN ANESTHESIA: General endotracheal. ESTIMATED BLOOD LOSS: Minimal. FINDINGS: Symptomatic biliary dyskinesia with biliary sludge. DISPOSITION: The patient tolerated the procedure well. INDICATIONS: The patient is a 72-year-old female known to us. We had seen her for previous colonoscopies as well as EGDs for peptic ulcer disease and reflux. Her last EGD was in 11/2022 and she was found to have reflux esophagitis, [place] grade B, small hiatal hernia 2.5 cm in size as well as gastritis and she was treated with PPI acid reducers. She continued to have symptoms including abdominal bloating as well as crampy pain in the epigastric region as well as right upper abdominal quadrant with radiation towards the back. She also had reported some mild nausea; however, no vomiting. She initially underwent an ultrasound, which did not show any gallstones and this was followed by a HIDA scan, which showed an ejection fraction 43%. She reports that her symptoms had worsened over time despite maximal medical therapy and we repeated a HIDA scan, which did show a lower ejection fraction of 33% as well as reproduction of symptoms with the administration of the Kinevac analogue consistent with the symptomatic biliary dyskinesia. DESCRIPTION OF PROCEDURE: The patient was brought to the operating room, laid supine on the table. After adequate IV pain and sedative medications and general endotracheal intubation, the abdomen was prepped and draped in standard surgical fashion. A 2% lidocaine with epinephrine was then used to anesthetize the overlying skin in the left upper abdominal quadrant and a transverse skin incision made using a #15 blade. An 0 silk suture was applied to the medial aspect of the incision for retraction and a Veress needle inserted with low opening pressure of 0 mmHg and the abdomen was then insufflated to 15 mmHg pressure. The Veress needle removed and a 5 mm trocar placed followed by a 5 mm 45-degree angle laparoscope visualized the peritoneal cavity. A 4-quadrant abdominal exploration was performed. There was a distended gallbladder, no gallbladder wall thickening. Under direct visualization, we then proceeded to place a supraumbilical 10 mm port after the skin and peritoneal lining were anesthetized using 2% lidocaine with epinephrine and a transverse skin incision made using a #15 blade. In a similar manner, a right upper abdominal quadrant 5 mm port was placed. The patient was then placed in reverse Trendelenburg position as well as plane right side up, left side down. The fundus of the gallbladder was retracted anteriorly and superiorly. The hepatoduodenal ligament was then dissected bluntly as well as using electrocautery on the hook instrument as well as a [place] dissector. The entire critical view of safety was identified including the triangle of Calot as well as the cystic duct and artery as the only 2 structures going into the gallbladder as well as the cystic plate behind the proximal gallbladder. A timeout was then taken and the cystic duct and artery were then clipped proximally and distally and cut with EndoShears. The gallbladder was then dissected off of the liver bed using cautery on the hook instrument with visualization of good hemostasis as well as no leaking ducts of Luschka. The gallbladder was removed through the 10 mm port site using an EndoCatch bag. The fascia and peritoneum to the 10 mm port were then closed under direct visualization using a Kayode-Ravinder device and an 0 Vicryl suture. The abdomen was desufflated and remaining ports removed. All skin incisions were closed using 4-0 Monocryl running subcuticular sutures. Wounds were then cleaned and covered with Dermabond. The patient tolerated the procedure well. We will start IV and oral pain medication as well as a clear liquid diet. When she is tolerating clears with good pain control with oral pain medications, ambulating well, we will discharge her home where she will be instructed no heavy lifting or exertion for the next 2 weeks. Job ID: [id number] DocumentID: [id number] Dictated Date: 06/26/2023 14:43:21 Custom Motorcycle Painter Date: 06/26/2023 21:35:00 Dictated By: EVETTE BARILLAS MD
== END 2023-06-26 17:10 | disposition home or self-care (01) ==
LOC: SDC 11:37
PROVIDERS: ATTEND Surgery
DX: K81.1 Chronic cholecystitis (principal); K82.8 Other specified diseases of gallbladder; Z79.899 Other long term (current) drug therapy
CPT/HCPCS: 87081